=== PATIENT | male | born 1940 | race Caucasian/White ===

== ENCOUNTER 2016-08-19 22:15 | Emergency (ER) | payer MEDICARE, MEDICAID ==
[2016-08-19] MEDS ORDERED: ISOSORBIDE DINI10 M1 (23:17)
[2016-08-19] MEDS ORDERED: NORCO 5-325 TA1 EACH PO (23:59)
== END 2016-08-20 01:00 ==
LOC: EDMED 22:15
PROC: 2W2JX4Z Dressing of Right Finger using Bandage (ICD-10-PCS; principal; 2016-08-19)
DX: T23.031A Burn of unspecified degree of multiple right fingers (nail), not including thumb, initial encounter (principal); T31.0 Burns involving less than 10% of body surface; I10 Essential (primary) hypertension; Z90.49 Acquired absence of other specified parts of digestive tract; Z79.899 Other long term (current) drug therapy; Z96.653 Presence of artificial knee joint, bilateral; X16.XXXA Contact with hot heating appliances, radiators and pipes, initial encounter